=== PATIENT | male | born 1975 | race African-American/Black ===

== ENCOUNTER 2016-11-17 19:59 | Inpatient (IN) | payer OTHER ==
[2016-11-17] MEDS ORDERED: SODIUM CHLORIDE 1,000 ML IV STA (20:39)
[2016-11-17] MEDS ORDERED: ONDANSETRON 4 MG/2 ML VIAL IVPB ONE (20:39)
--- NOTE | 2016-11-17 20:39 | PDOC ---
History of Present Illness - General History Source: Patient Exam Limitations: No Limitations - History of Present Illness Initial Comments: 11/17/16 20:44 The patient is a 41 year old male, with no significant past medical history who presents to the emergency department with abdominal pain for the past couple months with intermittent chills, nausea, and vomiting. The patient reports having intermittent abdominal pain for about 2 months that is occasionally accompanied by nausea and vomiting. He ranks his pain a 10/10 in pain intensity. He reports about 2 weeks ago during one of his symptomatic episodes of abdominal pain being unable to move or walk secondary to pain. He also reports his last episode of nausea and vomiting was about 2 weeks ago. He denies recent headache or dizziness. He denies recent diarrhea or constipation. He denies recent dysuria, frequency, urgency or hematuria. He denies recent chest pain or shortness of breath. Allergies: NKA Past surgical history: None reported. Social history: Current everyday smoker. Denies recreational drug use. <Slim Amos - Last Filed: 11/17/16 20:50> <Tia Bryan - Last Filed: 11/18/16 00:24> - General Chief Complaint: Pain Stated Complaint: ABD PAIN Time Seen by Provider: 11/17/16 20:32 Past History <Slim Amos - Last Filed: 11/17/16 20:50> - Psycho/Social/Smoking Cessation Hx Suicidal Ideation: No Smoking History: Current every day smoker Have you smoked in the past 12 months: Yes Number of Cigarettes Smoked Daily: 4 Information on smoking cessation initiated: No Hx Alcohol Use: Yes (2-3 times a week) Drug/Substance Use Hx: No <Tia Bryan - Last Filed: 11/18/16 00:24> - Past Medical History Allergies/Adverse Reactions: Allergies Allergy/AdvReac Type Severity Reaction Status Date / Time No Known Allergies Allergy Verified 11/17/16 20:09 Home Medications: Ambulatory Orders NK [No Known Home Medication] 11/17/16 Review of Systems - Review of Systems Able to Perform ROS?: Yes Comments:: 11/17/16 20:45 CONSTITUTIONAL: +fever Absent: chills, diaphoresis, generalized weakness, malaise, loss of appetite HEENT: Absent: rhinorrhea, nasal congestion, throat pain, throat swelling, difficulty swallowing, mouth swelling, ear pain, eye pain, visual Changes CARDIOVASCULAR: Absent: chest pain, syncope, palpitations, irregular heart rate, lightheadedness , peripheral edema RESPIRATORY: Absent: cough, shortness of breath, dyspnea with exertion, orthopnea, wheezing, stridor, hemoptysis GASTROINTESTINAL: +abd pain, nausea, and vomiting. Absent: diarrhea, constipation, melena, hematochezia GENITOURINARY: Absent: dysuria, frequency, urgency, hesitancy, hematuria, flank pain, genital pain MUSCULOSKELETAL: Absent: myalgia, arthralgia, joint swelling SKIN: Absent: rash, itching, pallor HEMATOLOGIC/IMMUNOLOGIC: Absent: easy bleeding, easy bruising, lymphadenopathy, frequent infections ENDOCRINE: Absent: unexplained weight gain, unexplained weight loss, heat intolerance, cold intolerance NEUROLOGIC: Absent: headache, focal weakness or paresthesias, dizziness, unsteady gait, seizure, mental status changes, bladder or bowel incontinence PSYCHIATRIC: Absent: anxiety, depression, suicidal or homicidal ideation, hallucinations. <Slim Amos - Last Filed: 11/17/16 20:50> *Physical Exam - Vital Signs Last Vital Signs Temp Pulse Resp BP Pulse Ox 98.4 F 84 18 139/75 100 11/17/16 20:02 11/17/16 20:02 11/17/16 20:02 11/17/16 20:02 11/17/16 20:02 - Physical Exam Comments: 11/17/16 20:45 GENERAL: Well developed, well nourished. Awake and alert. No acute distress. HEENT: Normocephalic, atraumatic. PERRLA, EOMI. No conjunctival pallor. Sclera are non- icteric. Moist mucous membranes. Oropharynx is clear. NECK: Supple. Full ROM. No JVD. Carotid pulses 2+ and symmetric, without bruits. No thyromegaly. No lymphadenopathy. CARDIOVASCULAR: Regular rate and rhythm. No murmurs, rubs, or gallops. Distal pulses are 2+ and symmetric. PULMONARY: No evidence of respiratory distress. Lungs clear to auscultation bilaterally. No wheezing, rales or rhonchi. ABDOMINAL: +RLQ tenderness. Soft. Non-distended. No rebound or guarding. No organomegaly. Normoactive bowel sounds. MUSCULOSKELETAL Normal range of motion at all joints. No bony deformities or tenderness. No CVA tenderness. EXTREMITIES: No cyanosis. No clubbing. No edema. No calf tenderness. SKIN: Warm and dry. Normal capillary refill. No rashes. No jaundice. NEUROLOGICAL: Alert, awake, appropriate. Cranial nerves 2-12 intact. No deficits to light touch and temperature in face, upper extremities and lower extremities. No motor deficits in the in face, upper extremities and lower extremities. Normoreflexic in the upper and lower extremities. Normal speech. Toes are down- going bilaterally. Gait is normal without ataxia. PSYCHIATRIC: Cooperative. Good eye contact. Appropriate mood and affect. <Slim Amos - Last Filed: 11/17/16 20:50> - Vital Signs Last Vital Signs Temp Pulse Resp BP Pulse Ox 98.4 F 84 18 139/75 100 11/17/16 20:02 11/17/16 20:02 11/17/16 20:02 11/17/16 20:02 11/17/16 20:02 <Tia Bryan - Last Filed: 11/18/16 00:24> ED Treatment Course - LABORATORY CBC & Chemistry Diagram: 11/17/16 20:50 11/17/16 20:50 <Tia Bryan - Last Filed: 11/18/16 00:24> Medical Decision Making - Medical Decision Making 11/17/16 22:23 41-year-old male presents with abdominal pain for the past 2 months. He said however today became worse and he took some Gas-X, so he could continue working. He said he had no vomiting, diarrhea, fever or chills today. On exam, he has lower abdominal discomfort to palpation. CBC and chemistries were within normal limits 11/18/16 00:20 ct scan of abd/pel : Findings suspicious for early acute appendicitis w 1 cm diameter of proximal/mid appendix with tapering of distal appendix to normal diameter and nearby mesenteric fat inflammation -pt made NPO and Dr Craig will admit to med/surg -will start IV zosyn I spoke w the surgeon Dr Charles who will take the pt to the OR this morning <Tia Bryan - Last Filed: 11/18/16 00:24> *DC/Admit/Observation/Transfer - Attestations Scribe Attestion: 11/17/16 20:45 Documentation prepared by Slim Amos, acting as medical record clerk for Tia Bryan MD. <Slim Amos - Last Filed: 11/17/16 20:50> - Discharge Dispostion Admit: Yes <Tia Bryan - Last Filed: 11/18/16 00:24> Diagnosis at time of Disposition: Acute appendicitis Qualifiers: Acute appendicitis type: unspecified acute appendicitis type Qualified Code(s) : K35.80 - Unspecified acute appendicitis - Referrals Referrals: Morro Kaminski MD [Primary Care Provider] -
[2016-11-17] MEDS ORDERED: ONDANSETRON 4 MG/2 ML VIAL ONE (20:46)
[2016-11-17] MEDS ORDERED: PANTOPRAZOLE SODIUM 40 MG in SODIUM CHLORIDE 100 ML IVPB ONE (20:50)
[2016-11-17] MEDS ORDERED: PANTOPRAZOLE SODIUM 40 MG VIAL ONE (20:56)
[2016-11-17 21:00] LABS: BASOPHIL 0.4 % (0-2.0); EOSINOPHIL 1.3 % (0-4.5); MCH 28.6 pg (25.7-33.7); MCHC 32.4 g/dl (32.0-35.9); MEAN CELL VOLUME 88.2 fl (80-96); MEAN PLT VOLUME 8.3 fl (7.5-11.1); NEUTROPHILS 61.5 % (42.8-82.8); PLATELET COUNT 186 K/MM3 (134-434); RDW 14.6 % (11.9-15.9); WHITE BLOOD COUNT 8.7 K/mm3 (4.0-10.0)
[2016-11-17] MEDS ORDERED: MAG HYDROX/AL HYDROX/SIMETH 30 ML UNIT-DOSE CUP ONE (21:03)
[2016-11-17 21:21] LABS: ALBUMIN 4.2 g/dl (3.4-5.0); ANION GAP 6 (8-16); BILIRUBIN,TOTAL 0.8 mg/dL (0.2-1.0); CO2 30 mmol/L (21-32); COCKROFT - GAULT 114.54; CREATININE 1.1 mg/dL (0.7-1.3); GLUCOSE,RANDOM 90 mg/dL (74-106); SGOT/AST 23 U/L (15-37); SGPT/ALT 26 U/L (12-78); TOT PROT 6.8 g/dl (6.4-8.2)
[2016-11-17 21:22] LABS: ALK PHOS 46 U/L (45-117)
[2016-11-17 22:12] LABS: URINE APPEARANCE CLEAR; URINE BILIRUBIN NEGATIVE (NEGATIVE); URINE BLOOD NEGATIVE (NEGATIVE); URINE COLOR YELLOW; URINE GLUCOSE (UA) NEGATIVE (NEGATIVE); URINE KETONE NEGATIVE (NEGATIVE); URINE LEUK ESTERASE NEGATIVE (NEGATIVE); URINE NITRITE NEGATIVE (NEGATIVE); URINE PROTEIN NEGATIVE (NEGATIVE); URINE UROBILINOGEN NEGATIVE E.U./dl (0.2-1.0)
--- NOTE | 2016-11-18 00:11 | PN ---
<Kanwal Craig - Last Filed: 11/18/16 00:11> Teaching Attending Note Name of Resident: Shannon Montemayor ATTENDING PHYSICIAN STATEMENT I saw and evaluated the patient. I reviewed the resident's note and discussed the case with the resident. I agree with the resident's findings and plan as documented. SUBJECTIVE: OBJECTIVE: ASSESSMENT AND PLAN: <Shaye Stanley - Last Filed: 11/18/16 01:29> Teaching Attending Note ATTENDING PHYSICIAN STATEMENT I saw and evaluated the patient. I reviewed the resident's note and discussed the case with the resident. I agree with the resident's findings and plan as documented. SUBJECTIVE: 41 yo M with no significant PMHx presents with RLQ abdominal pain. Patient also reports associated nausea and vomiting. Notes chills, but denies fevers. Patient also notes the pain is associated by movement. Patient found to have early acute appendicitis in the ED. Social Hx: Daily smoker Family Hx: HTN, DM OBJECTIVE: Last Vital Signs Temp Pulse Resp BP Pulse Ox 98.4 F 84 18 139/75 100 11/17/16 20:02 11/17/16 20:02 11/17/16 20:02 11/17/16 20:02 11/17/16 20:02 GENERAL: Awake, alert, and fully oriented, in no acute distress HEENT: Atraumatic. PERRLA, EOMI. Moist mucosa. No JVD LUNGS: No distress, speaks full sentences, clear to auscultation bilaterally HEART: Regular rate and rhythm, normal S1 and S2, no murmurs, rubs or gallops, peripheral pulses normal and equal bilaterally. ABDOMEN: Soft, mild tenderness to palpation on RLQ, normoactive bowel sounds. No guarding, no rebound. No masses EXTREMITIES: Normal inspection, Normal range of motion, no edema. No clubbing or Cyanosis. NEUROLOGICAL: Cranial nerves II through XII grossly intact. Normal speech, normal gait, no focal sensorimotor deficits SKIN: Warm, Dry, normal turgor, no rashes or lesions noted. CBCD WBC 8.7 K/mm3 (4.0-10.0) 11/17/16 20:50 RBC 4.81 M/mm3 (4.00-5.60) 11/17/16 20:50 Hgb 13.7 GM/dL (11.7-16.9) 11/17/16 20:50 Hct 42.4 % (35.4-49) 11/17/16 20:50 MCV 88.2 fl (80-96) 11/17/16 20:50 MCHC 32.4 g/dl (32.0-35.9) 11/17/16 20:50 RDW 14.6 % (11.9-15.9) 11/17/16 20:50 Plt Count 186 K/MM3 (134-434) 11/17/16 20:50 MPV 8.3 fl (7.5-11.1) 11/17/16 20:50 CMP Sodium 141 mmol/L (136-145) 11/17/16 20:50 Potassium 4.4 mmol/L (3.5-5.1) 11/17/16 20:50 Chloride 105 mmol/L (98-107) 11/17/16 20:50 Carbon Dioxide 30 mmol/L (21-32) 11/17/16 20:50 Anion Gap 6 (8-16) L 11/17/16 20:50 BUN 13 mg/dL (7-18) 11/17/16 20:50 Creatinine 1.1 mg/dL (0.7-1.3) 11/17/16 20:50 Creat Clearance w eGFR > 60 (>60) 11/17/16 20:50 Calcium 9.0 mg/dL (8.5-10.1) 11/17/16 20:50 Total Bilirubin 0.8 mg/dL (0.2-1.0) 11/17/16 20:50 AST 23 U/L (15-37) 11/17/16 20:50 ALT 26 U/L (12-78) 11/17/16 20:50 Alkaline Phosphatase 46 U/L (45-117) 11/17/16 20:50 Total Protein 6.8 g/dl (6.4-8.2) 11/17/16 20:50 Albumin 4.2 g/dl (3.4-5.0) 11/17/16 20:50 Abdominal US Cholelithiasis and slightly thickened gallbladder wall, 3.7 mm, but no pericholecystic fluid, gallbladder dilatation or reported sonographic Deluna's sign to suggest acute cholecystitis. Unremarkable liver, right kidney and visualized aorta and pancreas. No biliary dilatation. Abdominal CT Findings suspicious for early acute appendicitis. ASSESSMENT AND PLAN: 41 yo M with no significant PMHx presents with abdominal pain found to have acute appendicitis. 1.) Acute appendicitis -NPO -IVF -Zosyn -Low dose morphine PRN -Surgery consult -ID consult DVT ppx -low risk -ambulate -Admit to [facility] Documentation is prepared by Shaye Stanley acting as medical device for Kanwal Craig D.O.
[2016-11-18] MEDS ORDERED: PIPERACILLIN/TAZOB 3.375 GM 50 ML IVPB ONE ×2 (00:15→06:00)
[2016-11-18] MEDS ORDERED: PIPERACILLIN/TAZOB 3.375 GM 3.375 GM in DEXTROSE 5%-WATER - 50 ML IVPB ONE (00:15)
[2016-11-18] MEDS ORDERED: DEXTROSE 5%-0.45% SALINE 1,000 ML IV SCH (00:30)
[2016-11-18 00:40] LABS: INR 1.19 (0.82-1.09); PROTHROMBIN TIME (PATIENT) 13.1 SEC (9.98-11.88)
[2016-11-18] MEDS ORDERED: morphine CARPU-JECT 2 MG/1 ML DISP.SYRIN IVPUSH PRN (01:02)
--- NOTE | 2016-11-18 01:12 | HP ---
CHIEF COMPLAINT: "my stomach hurts" PCP: Dr Obregon HISTORY OF PRESENT ILLNESS: This is a previously healthy 41 yo M with no PMH, who presents with a 2 mo history of intermittent RLQ pain. The pain appears w/o specific inciting factor , lasts for hours and is exacerbated by movement. IT has no alleviating factors. It is sharp 10/10 and nonradiating. It is associated wth occasional n/ NBNB vomiting and chills. He denies fever, diaphoresis or dizziness. He has never had chest pain, denies sob, cough, orthopnea, palpitations or LE edema. He can walk up stairs and jog comfortably. He denies diarrhe constipation, hematochezia, melena or dysuria. 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, physical job Smokin cig/ day x 15 yrs Alcohol: 2 drinks per week Drugs: denies Family History: DM, HTN Allergies No Known Allergies Allergy (Verified 11/17/16 20:09) HOME MEDICATIONS: Home Medications Medication Instructions Recorded NK [No Known Home Medication] 11/17/16 REVIEW OF SYSTEMS CONSTITUTIONAL: Absent: diaphoresis, generalized weakness, malaise, loss of appetite, weight change HEENT: Absent: rhinorrhea, nasal congestion, throat pain CARDIOVASCULAR: Absent: chest pain, syncope, palpitations, irregular heart rate, lightheadedness , peripheral edema RESPIRATORY: Absent: cough, shortness of breath, dyspnea with exertion, orthopnea, wheezing, stridor, hemoptysis GASTROINTESTINAL: Absent: abdominal distension, diarrhea, constipation, melena, hematochezia GENITOURINARY: Absent: dysuria MUSCULOSKELETAL: Absent: myalgia, arthralgia SKIN: Absent: rash, itching, pallor HEMATOLOGIC/IMMUNOLOGIC: Absent: easy bleeding, easy bruising ENDOCRINE: Absent: unexplained weight gain, unexplained weight loss, heat intolerance, cold intolerance NEUROLOGIC: Absent: headache, focal weakness or paresthesias, dizziness PSYCHIATRIC: Absent: anxiety, depression PHYSICAL EXAMINATION Vital Signs - 24 hr 11/17/16 20:02 Temperature 98.4 F Pulse Rate 84 Respiratory 18 Rate Blood Pressure 139/75 O2 Sat by Pulse 100 Oximetry (%) GENERAL: Awake, alert, and fully oriented, in no acute distress. HEAD: Normal with no signs of trauma. EYES: Pupils equal, round and reactive to light, extraocular movements intact, sclera anicteric, conjunctiva clear. No lid lag. EARS, NOSE, THROAT: Moist mucous membranes. NECK: supple without JVD LUNGS: Breath sounds equal, clear to auscultation bilaterally HEART: Regular rate and rhythm, normal S1 and S2 without murmur, rub or gallop. ABDOMEN: Soft, mildly tender RLQ, not distended, normoactive bowel sounds, no guarding, no rebound, no masses. No hepatomegaly or splenomegaly. MUSCULOSKELETAL: No CVA tenderness. UPPER EXTREMITIES: 2+ pulses, warm, well-perfused. No cyanosis. No clubbing. No peripheral edema. LOWER EXTREMITIES: 2+ pulses, warm, well-perfused. No calf tenderness. No peripheral edema. NEUROLOGICAL: Cranial nerves II-XII grossly intact. Normal speech. PSYCHIATRIC: Cooperative. Good eye contact. Appropriate mood and affect. SKIN: Warm, dry. Laboratory Results - last 24 hr 11/17/16 11/17/16 11/17/16 20:39 20:50 20:50 WBC 8.7 RBC 4.81 Hgb 13.7 Hct 42.4 MCV 88.2 MCHC 32.4 RDW 14.6 Plt Count 186 MPV 8.3 Neutrophils % 61.5 Lymphocytes % 28.5 Monocytes % 8.3 Eosinophils % 1.3 Basophils % 0.4 INR Sodium 141 Potassium 4.4 Chloride 105 Carbon Dioxide 30 Anion Gap 6 L BUN 13 Creatinine 1.1 Creat Clearance w eGFR > 60 Random Glucose 90 Calcium 9.0 Total Bilirubin 0.8 AST 23 ALT 26 Alkaline Phosphatase 46 Total Protein 6.8 Albumin 4.2 Lipase 132 Urine Color Yellow Urine Appearance Clear Urine pH 5.0 Urine Protein Negative Urine Glucose (UA) Negative Urine Ketones Negative Urine Blood Negative Urine Nitrite Negative Urine Bilirubin Negative Urine Urobilinogen Negative Ur Leukocyte Esterase Negative 11/18/16 00:26 WBC RBC Hgb Hct MCV MCHC RDW Plt Count MPV Neutrophils % Lymphocytes % Monocytes % Eosinophils % Basophils % INR 1.19 H Sodium Potassium Chloride Carbon Dioxide Anion Gap BUN Creatinine Creat Clearance w eGFR Random Glucose Calcium Total Bilirubin AST ALT Alkaline Phosphatase Total Protein Albumin Lipase Urine Color Urine Appearance Urine pH Urine Protein Urine Glucose (UA) Urine Ketones Urine Blood Urine Nitrite Urine Bilirubin Urine Urobilinogen Ur Leukocyte Esterase ASSESSMENT/PLAN: This is a previously healthy 41 yo M with no PMH, who presents with a 2 mo history of intermittent RLQ pain. Acute appendicitis -CT and and US show inflamed appendix w/o abscess and a large gall stone in gallbladder -afebrile, hemodynamically stable, no leukocytosis -surgical removal indicated, lap sarah -Dr Pineda on case, or AM -received zosyn -LR @ 125 -zofran prn -iv tylenol and Iv morphine prn for severe pain -ID consult -NPO FEN LR@125 lytes stable NPO Dispo: med yasmeen Problem List - Problem (1) Acute appendicitis Code(s): K35.80 - UNSPECIFIED ACUTE APPENDICITIS Qualifiers: Acute appendicitis type: unspecified acute appendicitis type Qualified Code(s): K35.80 - Unspecified acute appendicitis Visit type - Emergency Visit Emergency Visit: Yes Care time: The patient presented to the Emergency Department on the above date and was hospitalized for further evaluation of their emergent condition. - New Patient This patient is new to me today: Yes Date on this admission: 11/18/16 - Critical Care Critical Care patient: No
[2016-11-18] MEDS ORDERED: ACETAMINOPHEN 1000 MG/100 ML VIAL (NON FORMULARY) IVPB PRN (01:15)
[2016-11-18] MEDS ORDERED: ONDANSETRON 4 MG/2 ML VIAL IVPUSH PRN ×3 (01:22→12:55)
[2016-11-18] MEDS: LACTATED RINGERS SOLUTION 1,000 ML IV SCH ×2 (01:31→06:53)
[2016-11-18 03:45] VITALS: BMI 28.5
[2016-11-18 07:13] LABS: MCH 29.2 pg (25.7-33.7); MCHC 32.7 g/dl (32.0-35.9); MEAN CELL VOLUME 89.3 fl (80-96); MEAN PLT VOLUME 8.6 fl (7.5-11.1); PLATELET COUNT 174 K/MM3 (134-434); RDW 14.2 % (11.9-15.9); WHITE BLOOD COUNT 5.9 K/mm3 (4.0-10.0)
[2016-11-18 07:35] LABS: INR 1.24 (0.82-1.09); PROTHROMBIN TIME (PATIENT) 13.7 SEC (9.98-11.88)
[2016-11-18 07:43] LABS: CALCIUM 8.5 mg/dL (8.5-10.1); COCKROFT - GAULT 104.34; CREATININE 1.1 mg/dL (0.7-1.3); MAGNESIUM 2.1 mg/dL (1.8-2.4); PHOSPHOROUS 4.1 mg/dL (2.5-4.9)
[2016-11-18] MEDS ORDERED: PANTOPRAZOLE SODIUM 100 ML IVPB SCH (10:00)
--- NOTE | 2016-11-18 10:20 | CONSULT ---
- Consultation REQUESTED PROVIDER: Dr. Charles CONSULT REQUEST: We have been asked to surgically evaluate this patient for acute appendicitis. PCP: Thiago Turcios HISTORY OF PRESENT ILLNESS: 41 yo M presented to the [facility] ED yesterday complaining of worsening lower abdominal pain. The patient states he has had abdominal pain for two months, but this pain worsened two weeks ago and was at that point accompanied by nausea and chills. The pain worsened last night to the point where he need to come to the ED. The pain is located in his lower abdomen, worse in the RLQ, constant, aching, and rates 10/10 in severity. The patient tried taking Gas-X for the pain, but this helped minimally. He denies current nausea or vomiting, fever, chills, constipation, or diarrhea. His last BM was yesterday. He last ate gummies and potato chips last night. PMHx: Denies PSHx: Pilonidal cyst removal 3 years ago Social: Smokes 4 cigs per day, occasional alcohol use Home Medications Medication Instructions Recorded NK [No Known Home Medication] 11/17/16 Allergies Allergy/AdvReac Type Severity Reaction Status Date / Time No Known Allergies Allergy Verified 11/17/16 20:09 REVIEW OF SYSTEMS: CONSTITUTIONAL: Absent: fever, chills, loss of appetite CARDIOVASCULAR: Absent: chest pain, palpitations, lightheadedness RESPIRATORY: Absent: cough, shortness of breath GASTROINTESTINAL: Present: abdominal pain Absent: nausea, vomiting, diarrhea, constipation GENITOURINARY: Absent: dysuria, frequency, urgency MUSCULOSKELETAL: Absent: myalgia, arthralgia SKIN: Absent: rash, itching HEMATOLOGIC/IMMUNOLOGIC: Absent: easy bleeding, easy bruising NEUROLOGIC: Absent: headache, dizziness PHYSICAL EXAM: GENERAL: Awake, alert, and fully oriented, in no acute distress. HEAD: Normal with no signs of trauma. EYES: PERRL, sclera anicteric, conjunctiva hugo NECK: Normal ROM LUNGS: Clear to auscultation bilat anteriorly HEART: Regular rate and rhythm ABDOMEN: Soft, not distended, pain with palpation in lower abdomen, worse in RLQ , no guarding, no rebound, no masses MUSCULOSKELETAL: Normal ROM at all joints. UPPER EXTREMITIES: 2+ pulses, warm, well-perfused. LOWER EXTREMITIES: 2+ pulses, warm, well-perfused. No calf tenderness NEUROLOGICAL: Normal speech, gait not observed. PSYCH: Cooperative. Good eye contact. Appropriate mood and affect. SKIN: Warm, dry Vital Signs Temperature 98.4 F 11/18/16 06:00 Pulse Rate 65 11/18/16 06:00 Respiratory Rate 16 11/18/16 06:00 Blood Pressure 114/58 11/18/16 06:00 O2 Sat by Pulse Oximetry (%) 100 11/18/16 03:49 Lab Results WBC 5.9 K/mm3 (4.0-10.0) D 11/18/16 05:41 RBC 4.56 M/mm3 (4.00-5.60) 11/18/16 05:41 Hgb 13.3 GM/dL (11.7-16.9) 11/18/16 05:41 Hct 40.8 % (35.4-49) 11/18/16 05:41 MCV 89.3 fl (80-96) 11/18/16 05:41 MCHC 32.7 g/dl (32.0-35.9) 11/18/16 05:41 RDW 14.2 % (11.9-15.9) 11/18/16 05:41 Plt Count 174 K/MM3 (134-434) 11/18/16 05:41 Sodium 143 mmol/L (136-145) 11/18/16 05:41 Potassium 4.2 mmol/L (3.5-5.1) 11/18/16 05:41 Chloride 106 mmol/L (98-107) 11/18/16 05:41 Carbon Dioxide 28 mmol/L (21-32) 11/18/16 05:41 Anion Gap 9 (8-16) 11/18/16 05:41 BUN 12 mg/dL (7-18) 11/18/16 05:41 Creatinine 1.1 mg/dL (0.7-1.3) 11/18/16 05:41 Random Glucose 75 mg/dL (74-106) 11/18/16 05:41 Calcium 8.5 mg/dL (8.5-10.1) 11/18/16 05:41 Blood Type O POSITIVE 11/18/16 00:26 Antibody Screen Negative 11/18/16 00:26 INR 1.24 (0.82-1.09) H 11/18/16 05:[address]: Findings suspicious for early acute appendicitis w 1 cm diameter of proximal/mid appendix with tapering of distal appendix to normal diameter and nearby mesenteric fat inflammation- final report pending US: Gallbladder calculus, mild wall thickening without pericholecystic fluid Problem List - Problems (1) Acute appendicitis Assessment/Plan: Patient discussed with Dr. Charles Plan for OR today for laparoscopic, possible open, appendectomy NPO, IVF pain control patient received Zosyn at 6:25 this AM GI/DVT prophylxis Code(s): K35.80 - UNSPECIFIED ACUTE APPENDICITIS Qualifiers: Acute appendicitis type: unspecified acute appendicitis type Qualified Code(s): K35.80 - Unspecified acute appendicitis Visit type - Case Type Case Type: ED Admission - Emergency Emergency Visit: Yes ED Registration Date: 11/18/16 Care time: The patient presented to the Emergency Department on the above date and was hospitalized for further evaluation of their emergent condition. - New patient This patient is new to me today: Yes Date on this admission: 11/18/16
--- NOTE | 2016-11-18 10:28 | EKG ---
Test Reason : Blood Pressure : / mmHG Vent. Rate : 070 BPM Atrial Rate : 070 BPM P-R Int : 166 ms QRS Dur : 088 ms QT Int : 380 ms P-R-T Axes : 062 066 042 degrees QTc Int : 410 ms NORMAL SINUS RHYTHM NORMAL ECG NO PREVIOUS ECGS AVAILABLE Confirmed by LEEANNA ROGER MD ([id number]) on 11/18/2016 10:28:12 AM Referred By: Confirmed By:LEEANNA ROGER MD
[2016-11-18] MEDS ORDERED: MIDAZOLAM HCL 2 MG/2 ML SINGLE DOSE VIAL ONE (10:57)
[2016-11-18] MEDS ORDERED: PROPOFOL 20 ML ONE (11:03)
[2016-11-18] MEDS ORDERED: LIDOCAINE HCL/PF 2% SDV 5ML VIAL ONE (11:03)
[2016-11-18] MEDS ORDERED: ROCURONIUM BROMIDE 50 MG/5 ML VIAL ONE (11:04)
--- NOTE | 2016-11-18 11:08 | MSN ---
Progress Note (SOAP) - Subjective Chief Complaint: Stomach pain History of Present Illness: MEDICAL STUDENT NOTE The patient is a pleasant 41 year old male with no significant past medical history who was admitted for chronic appendicitis. The patient stated that he has experienced intermittent abdominal pain over the past year that he attributed to gas. However, in the past 2-3 months he stated that the pain was becoming worse with accompanying nausea, non-bloody vomit, and chills. The pain was localized in the RLQ, described as "sharp", was non-radiating, rated 10/10, and would last for a few hours. The pain was exacerbated with movement. Previous to this episode, the patient last experienced pain with chills two weeks ago. Upon interview the patient denied any pain, nausea, vomiting, diarrhea, headaches, shortness of breath, or palpitations. - Current Medications Current Medications: Active Medications Acetaminophen (Ofirmev Injection -) 1,000 mg IVPB Q8H PRN Lactated Ringer's (Lactated Ringers Solution) 1,000 mls @ 125 mls/hr IV ASDIR [facility] Last Admin: 11/18/16 06:53 Dose: 125 mls/hr Pantoprazole Sodium (Protonix 40mg Ivpb (Pre-Docked)) 100 mls @ 200 mls/hr IVPB DAILY [facility] Last Admin: 11/18/16 09:44 Dose: 200 mls/hr Morphine Sulfate (Morphine Injection -) 1 mg IVPUSH Q4H PRN PRN Reason: PAIN Ondansetron HCl (Zofran Injection) 4 mg IVPUSH Q4H PRN PRN Reason: NAUSEA - Objective Vital Signs: Vital Signs Temperature 98.3 F 11/18/16 08:00 Pulse Rate 71 11/18/16 09:15 Respiratory Rate 20 11/18/16 09:15 Blood Pressure 116/72 11/18/16 09:15 O2 Sat by Pulse Oximetry (%) 97 11/18/16 08:00 Constitutional: Yes: Well Nourished, No Distress, Calm Eyes: Yes: WNL, Conjunctiva Clear. No: Sclera Icterus HENT: Yes: WNL, Atraumatic, Normocephalic, Drooling. No: Nasal Congestion, Rhinnorhea Neck: Yes: WNL, Supple, Trachea Midline Cardiovascular: Yes: WNL, Regular Rate and Rhythm, S1, S2. No: Pulse Irregular , S3, S4 Respiratory: Yes: WNL, Regular, CTA Bilaterally, SOB. No: Accessory Muscle Use , Cough, Rales, Rhonchi, Wheezes Gastrointestinal: Yes: Normal Bowel Sounds, Abdomen, Obese, Tenderness (LLQ), Vomiting (Negative Deluna sign, negative Rovsing sign), Other. No: Hepatomegaly , Palpable Mass, Pulsatile Mass, Splenomegaly, Tenderness, Epigastrium, Tenderness, Rebound Extremities: No: Calf Tenderness, Cold Peripheral Pulses WNL: Yes Peripheral Pulses: Left Radial: 2+, Right Radial: 2+, Left Doralis Pedis: 2+, Right Dorsalis Pedis: 2+ Edema: No (No edema B/L LE) Neurological: Yes: WNL, Alert, Oriented Psychiatric: Yes: WNL, Alert, Oriented Labs Lab Results: CBC, BMP 11/18/16 05:41 11/18/16 05:41 Assessment/Plan MEDICAL STUDENT ASSESSMENT AND PLAN The patient is a 41 year old male with no significant past medical history who was admitted for chronic appendcitis that will be treated with appendectomy. #Chronic appendicitis with no leukocytosis, afebrile - Dr. Charles following case, will undergo laparoscopic possibly open appendectomy today 11/18 - NPO - Lactate ringers 1000mls @ 125 mls/hr - Patient received two doses of zosyn, one on 11/18 0025 and on 11/18 0625 - Pain control with Morphine 1 mg q4hr PRN and acetaminophen 1000mg q8hr PRN - Protonix 40mg 100mls qDay - Nausea control with zofran 4mg q4hr PRN #F/E/N - Fluids: Lactate ringers 1000mls @125 mls/hr - Electrolytes: No abnormalities - Nutrition: NPO due to impending surgery Disposition: Patient is currently scheduled to undergo appendectomy today 11/18; plan for discharge in morning 11/19.
[2016-11-18] MEDS ORDERED: ceFAZolin SODIUM 1 GM VIAL IVPB ONE (11:20)
--- NOTE | 2016-11-18 11:22 | PN ---
Progress Note (short form) - Note Progress Note: Attending Surgeon Patient sen and evaluated; chart reviewed; concur w/ a/p as outlined by the PA; informed consent obtained for surgery; r/b/ta's d/w the patient who wishes to proceed. Panda Charles MD FACS
[2016-11-18] MEDS ORDERED: ePHEDrine SULFATE 50 MG/1 ML AMPULE ONE (11:29)
[2016-11-18] MEDS ORDERED: BUPIVACAINE HCL/PF 0.5% (5MG/ML) 10 ML VIAL IJ ONE (12:12)
[2016-11-18] MEDS ORDERED: GLYCOPYRROLATE 0.2 MG/1 ML VIAL ONE ×2 (12:15→12:16)
[2016-11-18] MEDS ORDERED: NEOSTIGMINE METHYLSULFATE 0.5 MG/ML - 10 ML MDV ONE (12:15)
[2016-11-18] MEDS ORDERED: DEXAMETHASONE SOD PHOSPHATE 4 MG/1 ML VIAL ONE (12:15)
[2016-11-18] MEDS ORDERED: KETOROLAC TROMETHAMINE 30 MG/1 ML VIAL ONE (12:15)
[2016-11-18] MEDS ORDERED: ONDANSETRON 4 MG/2 ML VIAL ONE (12:17)
[2016-11-18] MEDS ORDERED: ceFAZolin SODIUM 1 GM VIAL ONE (12:22)
--- NOTE | 2016-11-18 12:30 | OP ---
Operative Note - Note: Operative Date: 11/18/16 Pre-Operative Diagnosis: acute appendicitis Operation: laparoscopic appendectomy Findings: acute appendicitis Post-Operative Diagnosis: Same as Pre-op Surgeon: Panda Charles Sponge Maker: Rebecca Zarate Anesthesia: General Specimens Removed: appendix Estimated Blood Loss (mls): 10 Drains & Tubes with Location: none
[2016-11-18] MEDS ORDERED: PROMETHAZINE HCL 25 MG/1 ML VIAL IVPUSH PRN (12:39)
[2016-11-18] MEDS ORDERED: ACETAMINOPHEN 325 MG TABLET (FP) PO PRN (12:50)
[2016-11-18] MEDS ORDERED: oxyCODONE HCL 5 MG TABLET PO PRN (12:50)
[2016-11-18] MEDS ORDERED: LACTATED RINGERS SOLUTION 1,000 ML IV SCH (12:55)
--- NOTE | 2016-11-18 13:00 | SURG ---
Surgery Rewriter Note Rewriter: Rebecca Zarate PA-C Date of Service: 11/18/16 Diagnosis: acute appendicitis Procedure: laparoscopic appendectomy I was present for the entirety of the operative procedure. For further detail, please refer to operative report. Visit type - Case Type Case Type: ED Admission
--- NOTE | 2016-11-18 14:16 | OP ---
DATE OF OPERATION: 11/18/2016 PREOPERATIVE DIAGNOSIS: Acute appendicitis. POSTOPERATIVE DIAGNOSIS: Acute appendicitis. PROCEDURE: Laparoscopic appendectomy. SURGEON: Panda Charles MD SHOESHINER: MARGARET Titus ANESTHESIA: General. OPERATIVE FINDINGS: Acute appendicitis. The rest of the findings were unremarkable. PROCEDURE: The patient was placed on the operating table in supine position, and after induction of general anesthesia and placement of sequential compression devices on the patient's lower extremities, the abdomen was prepped with ChloraPrep and draped in sterile fashion. Pneumoperitoneum was established above the umbilicus using a Asael cannula to a pressure of 15 mmHg. Subsequently a 5-mm port was placed at the umbilicus and an additional 12-mm port in the suprapubic area in the midline and a 5-mm port in the left lower quadrant. Laparoscopy was carried out and the previously-noted findings were observed. The appendix was grasped and placed on traction and then the mesoappendix divided using the LigaSure device. The base of the appendix was identified at the confluence of the taenia, and then using a 45-mm blue Endo TAY, the appendix was divided from the base of the cecum. The appendix was placed in an EndoCatch and brought out through the suprapubic port. Hemostasis was checked for and noted to be good at the appendiceal base and then the left lower quadrant port was removed under laparoscopic vision without evidence of bleeding from the port site. There was no evidence of bleeding from the suprapubic port site as well. The umbilical port and camera were removed, the pneumoperitoneum evacuated, and the defect in the fascia at the suprapubic area was closed with a single 0 Vicryl [id number] suture. The skin edges were reapproximated with 4-0 Biosyn followed by Steri-Strips and band-aid dressings. The procedure was terminated at this point and the patient aroused from general anesthesia and transferred to the post-anesthesia care unit in stable condition, awake and alert. Estimated blood loss 15 mL. Replacement: Crystalloid. Drains: None. Specimen: Appendix to Pathology. I, Panda Charles, was physically present in the operating room from the time the patient was placed on the operating table until he was transferred to the post-anesthesia care unit in my accompaniment. Panda Charles MD /[id number]
--- NOTE | 2016-11-18 14:22 | PN ---
Progress Note (short form) - Note Progress Note: ID Post op acute appendicitis Selected Entries 11/18/16 11/18/16 12:35 13:00 Temperature 98.5 F Pulse Rate 72 Respiratory 26 H Rate Blood Pressure 122/62 O2 Sat by Pulse 98 Oximetry (%) Microbiology Laboratory Tests 11/18/16 11/18/16 05:41 05:41 WBC 5.9 D Hgb 13.3 Hct 40.8 Plt Count 174 BUN 12 Creatinine 1.1 Acute Appendicitis Plan Continue Ceftriaxone and metronidazole Evaristo COON Problem List - Problems (1) Acute appendicitis Code(s): K35.80 - UNSPECIFIED ACUTE APPENDICITIS Qualifiers: Acute appendicitis type: unspecified acute appendicitis type Qualified Code(s): K35.80 - Unspecified acute appendicitis
[2016-11-18] MEDS ORDERED: SODIUM CHLORIDE 0.9% 1000 ML INFUS.BAG IV SCH (14:30)
--- NOTE | 2016-11-18 15:17 | PN ---
Physical Exam: SUBJECTIVE: Patient seen and examined at bedside. No overnight events. No new complaints. Abd. pain is minimal . Denies CP,ANGEL, SOB, palpitations, N/V. OBJECTIVE: Vital Signs Period Temp Pulse Resp BP Sys/Gutierrez Pulse Ox Last 24 Hr 97.3 F-98.5 F 65-78 12-30 96-134/58-72 97-100 GENERAL: AAO x3 , NAD HEAD: NC/AT EYES: PERRL, EOMI, sclera anicteric, conjunctiva clear. No ptosis. ENT: Dry mucous membranes. NECK: supple, No JVD LUNGS: CTAB, no wheezing, rhonchi or accessory muscle use. HEART: RRR, S1, S2 without murmur, rub or gallop. ABDOMEN: Soft,mild tenderness bilat. lower quadrants., nondistended, normoactive bowel sounds, no guarding, no rebound, no hepatosplenomegaly, no masses. EXTREMITIES: 2+ pulses, warm, well-perfused, no edema. NEUROLOGICAL: Cranial nerves II through XII grossly intact. Normal speech, gait not observed. PSYCH: Normal mood, normal affect. Laboratory Results - last 24 hr 11/18/16 11/18/16 11/18/16 00:26 00:26 05:41 WBC 5.9 D RBC 4.56 Hgb 13.3 Hct 40.8 MCV 89.3 MCHC 32.7 RDW 14.2 Plt Count 174 MPV 8.6 INR 1.19 H Sodium Potassium Chloride Carbon Dioxide Anion Gap BUN Creatinine Random Glucose Calcium Phosphorus Magnesium Blood Type O POSITIVE Antibody Screen Negative 11/18/16 11/18/16 05:41 05:41 WBC RBC Hgb Hct MCV MCHC RDW Plt Count MPV INR 1.24 H Sodium 143 Potassium 4.2 Chloride 106 Carbon Dioxide 28 Anion Gap 9 BUN 12 Creatinine 1.1 Random Glucose 75 Calcium 8.5 Phosphorus 4.1 Magnesium 2.1 Blood Type Antibody Screen Active Medications Generic Name Dose Route Start Last Admin Trade Name Freq PRN Reason Stop Dose Admin Acetaminophen 650 mg 11/18/16 12:50 Tylenol - PO Q4H PRN FEVER OR PAIN Fentanyl 50 mcg 11/18/16 12:39 Sublimaze Injection - IVPUSH 11/21/16 12:40 [id number] PRN PAIN Pantoprazole Sodium 100 mls @ 200 mls/hr 11/19/16 10:00 Protonix 40mg Ivpb (Pre-Docked) IVPB DAILY [facility] Ceftriaxone Sodium 100 mls @ 200 mls/hr 11/19/16 10:00 Rocephin 2gm Ivpb (Pre-Docked) IVPB DAILY [facility] Morphine Sulfate 1 mg 11/18/16 12:55 Morphine Injection - IVPUSH Q4H PRN PAIN Ondansetron HCl 4 mg 11/18/16 12:39 Zofran Injection IVPUSH 11/18/16 18:40 Q6H PRN NAUSEA AND/OR VOMITING Ondansetron HCl 4 mg 11/18/16 12:55 Zofran Injection IVPUSH Q4H PRN NAUSEA Oxycodone HCl 10 mg 11/18/16 12:39 Roxicodone - PO 11/19/16 12:38 Q4H PRN SEVERE PAIN Oxycodone HCl 5 mg 11/18/16 12:50 Roxicodone - PO Q4H PRN PAIN Promethazine HCl 12.5 mg 11/18/16 12:39 Phenergan Injection - IVPUSH 11/18/16 18:40 Q6H PRN NAUSEA Sodium Chloride 75 ml 11/18/16 14:30 Normal Saline - IV Q12H [facility] ASSESSMENT/PLAN: 41 yo M with no significant PMHx admitted for acute appendicitis. Problem List - Problems (1) Acute appendicitis Assessment/Plan: * Patient evaluated by surgery taken to OR for Lap. Appendectomy * As per ID patient will be on Flagyl and Rocephin * Zofran for nausea * Oxycodone 5mg Q4H prn for pain * Liquid diet * IVF with NS Visit type - Emergency Visit Emergency Visit: Yes ED Registration Date: 11/18/16 Care time: The patient presented to the Emergency Department on the above date and was hospitalized for further evaluation of their emergent condition. - New Patient This patient is new to me today: Yes Date on this admission: 11/18/16 - Critical Care Critical Care patient: No
--- NOTE | 2016-11-18 15:24 | CONS ---
DATE OF CONSULTATION: 11/18/2016 This is a 41-year-old male, who I am asked to see postoperatively for acute appendicitis. He initially presented with a 2-month history of recurrent intermittent right lower quadrant pain lasting several hours and then improving spontaneously. He describes occasional nausea, vomiting, and chills, but had no fever at the time of admission. He had an abdominal CT scan, which showed findings suggestive of early acute appendicitis. He has been operated on this afternoon and is stable postoperative. He has no other medical conditions and his HIV status is unknown. He remains afebrile with a normal white count. PHYSICAL EXAMINATION: General: Revealed a well-nourished appearing male in no acute distress. Vital Signs: Temperature 98.5, pulse 72, blood pressure 122/62, respirations 26. Neck: Supple. Lungs: Clear. Heart: S1, S2. Regular rhythm. No murmur. Abdomen: Postoperative dressing. Extremities: Without edema. White count of 5.9, hemoglobin 13.3, platelets of 174. BUN 12, creatinine 1.1. Two sets of blood cultures, no growth. ASSESSMENT: Acute appendicitis. PLAN: Empiric therapy with ceftriaxone 2 g daily, metronidazole 500 mg q.8. Anticipate short length of stay. BIJAN ALCAZAR M.D. SHELLI/[id number]
[2016-11-18] MEDS: SODIUM CHLORIDE 1,000 ML IV SCH (16:33)
[2016-11-18] MEDS: morphine CARPU-JECT 2 MG/1 ML DISP.SYRIN IVPUSH PRN (18:10)
--- NOTE | 2016-11-18 20:03 | PN ---
Teaching Attending Note Name of Resident: Tomas Chirinos ATTENDING PHYSICIAN STATEMENT I saw and evaluated the patient. I reviewed the resident's note and discussed the case with the resident. I agree with the resident's findings and plan as documented. SUBJECTIVE: Patient is feeling better with no acute distress, wants to go home. OBJECTIVE: Vital Signs Temperature 98.0 F 11/18/16 15:48 Pulse Rate 70 11/18/16 15:48 Respiratory Rate 20 11/18/16 15:48 Blood Pressure 96/55 11/18/16 15:48 O2 Sat by Pulse Oximetry (%) 96 11/18/16 15:48 CBCD WBC 5.9 K/mm3 (4.0-10.0) D 11/18/16 05:41 RBC 4.56 M/mm3 (4.00-5.60) 11/18/16 05:41 Hgb 13.3 GM/dL (11.7-16.9) 11/18/16 05:41 Hct 40.8 % (35.4-49) 11/18/16 05:41 MCV 89.3 fl (80-96) 11/18/16 05:41 MCHC 32.7 g/dl (32.0-35.9) 11/18/16 05:41 RDW 14.2 % (11.9-15.9) 11/18/16 05:41 Plt Count 174 K/MM3 (134-434) 11/18/16 05:41 MPV 8.6 fl (7.5-11.1) 11/18/16 05:41 CMP Sodium 143 mmol/L (136-145) 11/18/16 05:41 Potassium 4.2 mmol/L (3.5-5.1) 11/18/16 05:41 Chloride 106 mmol/L (98-107) 11/18/16 05:41 Carbon Dioxide 28 mmol/L (21-32) 11/18/16 05:41 Anion Gap 9 (8-16) 11/18/16 05:41 BUN 12 mg/dL (7-18) 11/18/16 05:41 Creatinine 1.1 mg/dL (0.7-1.3) 11/18/16 05:41 Creat Clearance w eGFR > 60 (>60) 11/17/16 20:50 Random Glucose 75 mg/dL (74-106) 11/18/16 05:41 Calcium 8.5 mg/dL (8.5-10.1) 11/18/16 05:41 Total Bilirubin 0.8 mg/dL (0.2-1.0) 11/17/16 20:50 AST 23 U/L (15-37) 11/17/16 20:50 ALT 26 U/L (12-78) 11/17/16 20:50 Alkaline Phosphatase 46 U/L (45-117) 11/17/16 20:50 Total Protein 6.8 g/dl (6.4-8.2) 11/17/16 20:50 Albumin 4.2 g/dl (3.4-5.0) 11/17/16 20:50 Current Medications Generic Name Dose Route Start Last Admin Trade Name Freq PRN Reason Stop Dose Admin Acetaminophen 650 mg 11/18/16 12:50 Tylenol - PO Q4H PRN FEVER OR PAIN Fentanyl 50 mcg 11/18/16 12:39 Sublimaze Injection - IVPUSH 11/21/16 12:40 [id number] PRN PAIN Pantoprazole Sodium 100 mls @ 200 mls/hr 11/19/16 10:00 Protonix 40mg Ivpb (Pre-Docked) IVPB DAILY [facility] Ceftriaxone Sodium 100 mls @ 200 mls/hr 11/19/16 10:00 Rocephin 2gm Ivpb (Pre-Docked) IVPB DAILY [facility] Sodium Chloride 1,000 mls @ 75 mls/hr 11/18/16 16:00 11/18/16 16:33 Normal Saline - IV 75 mls/hr ASDIR [facility] Administration Morphine Sulfate 1 mg 11/18/16 12:55 11/18/16 18:10 Morphine Injection - IVPUSH 1 mg Q4H PRN Administration PAIN Ondansetron HCl 4 mg 11/18/16 12:55 Zofran Injection IVPUSH Q4H PRN NAUSEA Oxycodone HCl 10 mg 11/18/16 12:39 Roxicodone - PO 11/19/16 12:38 Q4H PRN SEVERE PAIN Oxycodone HCl 5 mg 11/18/16 12:50 Roxicodone - PO Q4H PRN PAIN Home Medications Medication Instructions Recorded NK [No Known Home Medication] 05/14/17 ASSESSMENT AND PLAN: 41 yo M with no significant PMHx admitted for acute appendicitis. # Acute appendicitis s/p Lap. Appendectomy s/p IV Rocephin ;Zofran for nausea ; Oxycodone 5mg Q4H prn for pain Patient is cleared for discharge by surgery.
[2016-11-18] MEDS: oxyCODONE HCL 5 MG TABLET PO PRN (21:56)
[2016-11-19] MEDS: morphine CARPU-JECT 2 MG/1 ML DISP.SYRIN IVPUSH PRN (00:59)
[2016-11-19] MEDS: oxyCODONE HCL 5 MG TABLET PO PRN (06:13)
[2016-11-19] MEDS: SODIUM CHLORIDE 1,000 ML IV SCH (06:57)
[2016-11-19 07:27] LABS: BASOPHIL 0.2 % (0-2.0); EOSINOPHIL 0.2 % (0-4.5); MCH 28.8 pg (25.7-33.7); MCHC 32.5 g/dl (32.0-35.9); MEAN CELL VOLUME 88.8 fl (80-96); MEAN PLT VOLUME 8.3 fl (7.5-11.1); NEUTROPHILS 67.6 % (42.8-82.8); PLATELET COUNT 173 K/MM3 (134-434); RDW 14.2 % (11.9-15.9); WHITE BLOOD COUNT 8.7 K/mm3 (4.0-10.0)
[2016-11-19 07:51] LABS: ALBUMIN 3.2 g/dl (3.4-5.0); ANION GAP 10 (8-16); BILIRUBIN,TOTAL 0.8 mg/dL (0.2-1.0); CALCIUM 8.6 mg/dL (8.5-10.1); CO2 28 mmol/L (21-32); GLUCOSE,RANDOM 81 mg/dL (74-106)
[2016-11-19 07:53] LABS: ALK PHOS 43 U/L (45-117); COCKROFT - GAULT 119.89; SGOT/AST 17 U/L (15-37); SGPT/ALT 19 U/L (12-78); TOT PROT 5.8 g/dl (6.4-8.2)
--- NOTE | 2016-11-19 09:09 | PN ---
Progress Note (short form) - Note Progress Note: POD #1 Alert. resting comfortably without complaint. Tolerating PO clears. Ambulating without difficulty. Voiding spontaneously. Denies n/v/f/c, CP or SOB. AVSS. Afebrile. PE Gen: nad ABD: All surgical ports intact. No hematoma. Problem List - Problems (1) Acute appendicitis Assessment/Plan: POD #1 s/p lap appendectomy Regular diet No further sugrical intervention Cleared for dc from a surgical standpoint On behalf of Dr. Charles, thank you for the opportunity to participate in your patient's care. Code(s): K35.80 - UNSPECIFIED ACUTE APPENDICITIS Qualifiers: Acute appendicitis type: unspecified acute appendicitis type Qualified Code(s): K35.80 - Unspecified acute appendicitis
[2016-11-19] MEDS ORDERED: CEFTRIAXONE 2G/100 ML IVPB SCH (10:00)
[2016-11-19] MEDS ORDERED: PANTOPRAZOLE SODIUM 100 ML IVPB SCH (10:00)
[2016-11-19 12:02] VITALS: BP 141/61; PULSE 77; TEMP 98.4
--- NOTE | 2016-11-19 12:15 | MSN ---
Progress Note (SOAP) - Subjective History of Present Illness: MEDICAL STUDENT NOTE The patient is a pleasant 41 year old male with no significant past medical history who is post operative day 1 for laparoscopic appendectomy for acute appendicitis. The patient is able to stand and ambulate. He states that his experiences pain when he is sitting down, standing up, or leaning forward. The pain is sharp, located all over the abdomen, and rated 8/10. He denies nausea, vomiting, chills, fever, diarrhea, constipation, shortness of breath, chest pain , or palpitations. - Current Medications Current Medications: Active Medications Acetaminophen (Tylenol -) 650 mg PO Q4H PRN PRN Reason: FEVER OR PAIN Docusate Sodium (Colace -) 100 mg PO TID [facility] Fentanyl (Sublimaze Injection -) 50 mcg IVPUSH [id number] PRN PRN Reason: PAIN Stop: 11/21/16 12:40 Pantoprazole Sodium (Protonix 40mg Ivpb (Pre-Docked)) 100 mls @ 200 mls/hr IVPB DAILY [facility] Last Admin: 11/19/16 10:00 Dose: 200 mls/hr Ceftriaxone Sodium (Rocephin 2gm Ivpb (Pre-Docked)) 100 mls @ 200 mls/hr IVPB DAILY [facility] Last Admin: 11/19/16 11:00 Dose: 200 mls/hr Sodium Chloride (Normal Saline -) 1,000 mls @ 75 mls/hr IV ASDIR [facility] Last Admin: 11/19/16 06:57 Dose: 75 mls/hr Morphine Sulfate (Morphine Injection -) 1 mg IVPUSH Q4H PRN PRN Reason: PAIN Last Admin: 11/19/16 00:59 Dose: 1 mg Ondansetron HCl (Zofran Injection) 4 mg IVPUSH Q4H PRN PRN Reason: NAUSEA Oxycodone HCl (Roxicodone -) 10 mg PO Q4H PRN PRN Reason: SEVERE PAIN Stop: 11/19/16 12:38 Last Admin: 11/19/16 06:13 Dose: 10 mg Oxycodone HCl (Roxicodone -) 5 mg PO Q4H PRN PRN Reason: PAIN - Objective Vital Signs: Vital Signs Temperature 98.4 F 11/19/16 08:00 Pulse Rate 77 11/19/16 08:00 Respiratory Rate 20 11/19/16 08:00 Blood Pressure 141/61 11/19/16 08:00 O2 Sat by Pulse Oximetry (%) 97 11/19/16 08:00 Constitutional: Yes: Well Nourished, No Distress, Calm, Obese. No: Anxious, Ashen, Diaphoresis, Pallor Eyes: Yes: WNL, Conjunctiva Clear. No: Ptosis HENT: Yes: WNL, Atraumatic, Normocephalic. No: Drooling, Nasal Congestion, Rhinnorhea, Thrush Neck: Yes: WNL, Supple, Trachea Midline, Lymphadenopathy. No: Tenderness, Thyromegaly Cardiovascular: Yes: WNL, Regular Rate and Rhythm, S1, S2. No: Pulse Irregular , Murmur, Rub, S3, S4 Respiratory: Yes: WNL, Regular, CTA Bilaterally. No: Accessory Muscle Use, Cough, Rales, Rhonchi, SOB, Wheezes Gastrointestinal: Yes: Abdomen, Obese, Tenderness (Tender to palpation in all four quadrants), Tenderness, Epigastrium. No: Splenomegaly, Tenderness, Rebound Musculoskeletal: Yes: WNL. No: Back Pain, Joint Stiffness, Muscle Pain, Muscle Weakness Peripheral Pulses WNL: Yes Peripheral Pulses: Left Radial: 2+, Right Radial: 2+, Left Doralis Pedis: 2+, Right Dorsalis Pedis: 2+ Edema: No (No edema b/l LE) Integumentary: Yes: WNL. No: Bruising, Erythema, Jaundice, Petechiae, Venous Stasis Changes Wound/Incision: Yes: Clean/Dry, Dressing Dry and Intact Neurological: Yes: WNL, Alert, Oriented. No: Asterixis, Ataxia, Dysarthria, Lethargy, Loss of Sensation, Numbness, Paresthesia, Tingling, Tremors, Unsteady Gait ...Motor Strength: Yes: WNL Psychiatric: Yes: WNL, Alert, Oriented Labs Lab Results: CBC, BMP 11/19/16 06:25 11/19/16 06:25 Assessment/Plan MEDICAL STUDENT ASSESSMENT AND PLAN The patient is a 41 year old male with no significant past medical history who is post operative day 1 for laparoscopic appendectomy for acute appendicitis. #S/P Laparoscopic appendectomy - Patient tolerating liquid diet well, will change to soft solids and monitor - Pain well controlled with acetaminophen 650 mg q4 PRN, oxycodone 10mg q4 PRN, oxycodone 5mg q4 PRN, morphine 1 mg q4PRN - Zofran 4mg q4hr PRN for nausea - Consider discontinue protonix due to tolerating PO liquid - Flagyl 500mg q8hr and rocephin 2g qD per ID #F/E/N - Fluids: Consider discontinuing normal saline 1000mls @ 75mls/hr - Electrolytes: No abnormalities - Nutrition: Consider change to soft solids Disposition: Monitor patient on soft foods over lunch, if tolerating well then can discharge today.
[2016-11-19] MEDS ORDERED: DOCUSATE SODIUM 100 MG CAPSULE (FP) PO SCH (14:00)
--- NOTE | 2016-11-19 14:35 | PATH ---
Surgical Pathology Report Patient Name: ELIEZER ALONSO [facility]. Rec. #: [id number] /Age/Gender: 1975 (Age: 41) / M Account: [id number] Location: [address] [place] [address] Taken: 11/18/2016 Received: 11/18/2016 Reported: 11/19/2016 Physicians: Daen Rios MD Specimen(s) Received APPENDIX Clinical History Acute appendicitis Final Diagnosis APPENDIX, APPENDECTOMY: ACUTE APPENDICITIS AND PERIAPPENDICITIS. Electronically Signed José Miguel Sidhu M.D. Gross Description Received in formalin, labeled "appendix," is a 5.5 cm. in length vermiform appendix with a stapled margin of resection and moderate attached fat. The serosa is mensah-pink with focal attached exudate. Sectioning reveals an unremarkable lumen. The wall of the appendix averages 0.1 cm. in thickness. Shirt Closer sections are submitted in one cassette. /11/18/2016 saudi/11/18/2016
--- NOTE | 2016-11-19 17:00 | DS ---
Physical Exam: SUBJECTIVE: Patient seen and examined at bedside. POD #1 s/p Lap Appendectomy. Patient tolerated procedure well. Abdominal pain well controlled.(+) flatus. Wound appears C/D/I/. Cleared by surgery for discharge today. Denies CP, ANGEL, SOB , palpitations, N/V. OBJECTIVE: Vital Signs Period Temp Pulse Resp BP Sys/Gutierrez Pulse Ox Last 24 Hr 98.0 F-98.5 F 62-77 18-20 100-141/55-70 97 PHYSICAL EXAM GENERAL:AAO x3 , NAD HEAD: NC/AT EYES: PERRL, EOMI, sclera anicteric, conjunctiva clear. ENT: moist mucous membranes. NECK: supple, No JVD LUNGS: CTAB, no wheezes, no crackles, no accessory muscle use. HEART: RRR, S1, S2 , no M/G/R ABDOMEN: Soft, incisional tenderness,bandages do not show signs of bleeding. nondistended, normoactive bowel sounds, no guarding, no rebound, no hepatosplenomegaly, no masses. EXTREMITIES: 2+ pulses, warm, well-perfused, no edema. NEUROLOGICAL: Cranial nerves II through XII grossly intact. Normal speech, gait not observed. PSYCH: Normal mood, normal affect. LABS Laboratory Results - last 24 hr 11/19/16 11/19/16 06:25 06:25 WBC 8.7 D RBC 4.46 Hgb 12.9 Hct 39.6 MCV 88.8 MCHC 32.5 RDW 14.2 Plt Count 173 MPV 8.3 Neutrophils % 67.6 Lymphocytes % 23.6 Monocytes % 8.4 Eosinophils % 0.2 D Basophils % 0.2 Sodium 144 Potassium 4.2 Chloride 106 Carbon Dioxide 28 Anion Gap 10 BUN 10 Creatinine 1.0 Creat Clearance w eGFR > 60 Random Glucose 81 Calcium 8.6 Total Bilirubin 0.8 AST 17 D ALT 19 D Alkaline Phosphatase 43 L Total Protein 5.8 L Albumin 3.2 L D IMAGING: * CT/ABDOMEN PELVIS CT W/O CONTR Right lower quadrant pain CT scan of the abdomen pelvis without oral and intravenous contrast Coronal and sagittal reformatted images were obtained No prior is available for comparison The visualized lung base appears unremarkable and the heart is within normal limits in size. Evaluation of the liver, spleen and pancreas appear unremarkable. Stomach is collapsed significantly limiting evaluation of its wall. The gallbladder is adequately distended with a large stone at the level of the neck measuring 1.7 cm without wall thickening or pericholecystic free fluid. Both adrenal glands and both kidneys appear unremarkable. There is no evidence of small bowel obstruction. Normal-appearing terminal ileum. The appendix is elongated measuring 11 mm in diameter, adjacent to its base. There is questionable very minimal stranding of the surrounding fat. Findings may be on the basis of early acute appendicitis. Possible few diverticula in the proximal sigmoid colon without evidence of acute diverticulitis. Partially distended urinary bladder without wall thickening. Perirectal fat is clear. Visualized osseous structures appear intact IMPRESSION: Findings are suggestive of minimal/ early acute appendicitis. Correlate clinically for further evaluation. A preliminary report was forwarded by the [facility] service, [employer]. Reported By: Thuan Mayen MD 11/18/16 1118 HOSPITAL COURSE: Patient admitted for abdominal pain and CT findings suggestive of acute appendicitis. Patient kept NPO and surgery consulted. Patient was taken for Lap Appendectomy. Patient was given pre- and post- op antibiotics. Patient tolerated procedure well. Tolerated advancement of diet. Cleared by surgery for discharge today with follow up in one week with surgeon.Patient stable for discharge. Date of Admission:11/18/16 Date of Discharge: 11/19/16 Minutes to complete discharge: 33 Discharge Summary Reason For Visit: ACUTE APPENDICITIS Current Active Problems Acute appendicitis (Acute) Condition: Stable - Instructions Diet, Activity, Other Instructions: Dr. Charles Discharge Instructions Dear Apolinar, Post Operative Instructions Physical activity Resume your normal everyday activity as tolerated no heavy lifting or exercise until seen by your surgeon. You may walk unlimited amounts of and climb stairs. You may resume driving the car when you feel safe and comfortable behind the wheel. Wound care If you have a bandage, leave it on, and keep dry for 48 - 72 hours. After that time discard the outer bandage. If there are tapes on the skin under the outer bandage, leave them in place. They will peel off in the next 7 to 10 days. Do Not peel them off. You may shower 2 days after surgery. If there are tapes present on the skin, they can get wet. Diet There are no dietary restrictions. Eat healthy, high-fiber foods. Drink 6 to 8 glasses of liquid each day. This will assist in keeping your bowels are regular. Pain management You may take Tylenol or acetaminophen or Ibuprofen (for example, Motrin, Advil etc.) Any pain prescription medication ordered should be taken as prescribed for moderate to severe pain. Call Dr. Charles for any of the following: Severe pain not relieved by medication Fever of 101 or higher Excessive bleeding or drainage on dressing Inability to urinate Call the office at [phone] for a post operative appointment in 7 - 10 days. Referrals: Panda Charles MD [Staff Physician] - Morro Kaminski MD [Primary Care Provider] - Disposition: HOME - Home Medications Comprehensive Discharge Medication List: Ambulatory Orders Acetaminophen W/ Codeine #3 [Tylenol # 3 -] 1 tab PO Q4H PRN #30 tablet MDD 6 Problem List - Problems (1) Acute appendicitis This patient is new to me today: No Emergency Visit: Yes ED Registration Date: 11/18/16 Care time: The patient presented to the Emergency Department on the above date and was hospitalized for further evaluation of their emergent condition. Critical Care patient: No - Discharge Referral Referred to [facility] No
== END 2016-11-19 12:30 | disposition home or self-care (01) | DRG 225 ==
LOC: JER 19:59 → JERBED 11-18 00:12 → J6S 11-18 02:38
PROVIDERS: ADMIT Internal Medicine; ATTEND Internal Medicine
PROC: 0DTJ4ZZ Resection of Appendix, Percutaneous Endoscopic Approach (ICD-10-PCS; principal; 2016-11-18 09:00)
DX: K35.80 Unspecified acute appendicitis (principal); F17.210 Nicotine dependence, cigarettes, uncomplicated
CPT/HCPCS: 36415; 71020-TC; 74176-TC; 76705-TC; 80048; 80053; 81003; 83690; 83735; 84100; 85025; 85027; 85610; 86850; 86900; 86901; 87040; 88304-TC; 93005; 93010; 94760; 99283-25